=== PATIENT | female | born 1960 | race Caucasian/White ===

== ENCOUNTER → 2024-10-05 | Outpatient (REF) | payer OTHER ==
[2024-10-05 19:25] LABS: ALKALINE PHOSPHATASE 82 U/L (35-104); ALT/SGPT 14 U/L (7.0-40); AST/SGOT 11 U/L (<34); BILIRUBIN,TOTAL 0.6 MG/DL (0.3-1.2); BLOOD UREA NITROGEN 20 MG/DL (9-23); CALCIUM LEVEL 9.4 MG/DL (8.3-10.6); CARBON DIOXIDE LEVEL 28 MMOL/L (20-31); CHLORIDE LEVEL 107 MMOL/L (98-107); CHOLESTEROL LEVEL 279 MG/DL (<200); CHOLESTEROL RISK RATIO 3.98 (<5); CREATININE FOR GFR 0.72 MG/DL (0.55-1.30); GLOMERULAR FILTRATION RATE > 60.0 (>45); GLUCOSE, FASTING 84 MG/DL (74-106); LDL CHOLESTEROL 187.8 MG/DL (<100); POTASSIUM SERUM 4.6 MMOL/L (3.5-5.1); SODIUM LEVEL 142 MMOL/L (136-145); TOTAL PROTEIN 7.4 G/DL (5.7-8.2); TRIGLYCERIDES LEVEL 106 MG/DL (<150)
[2024-10-05 19:26] LABS: HEMATOCRIT 47.9 % (36.0-47.0); HEMOGLOBIN 15.3 g/dl (12.0-15.5); MEAN CORPUSCULAR HEMOGLOBIN 30.3 pg (27.0-33.0); MEAN CORPUSCULAR HGB CONC 31.9 g/dl (32.0-36.5); MEAN CORPUSCULAR VOLUME 94.9 fl (80.0-96.0); PLATELET COUNT, AUTOMATED 346 10^3/uL (150-450); RED BLOOD COUNT 5.05 10^6/uL (4.00-5.40); WHITE BLOOD COUNT 9.6 10^3/uL (4.0-10.0)
[2024-10-05 19:27] LABS: THYROID STIMULATING HORMONE 4.461 uIU/ML (0.55-4.78)
[2024-10-05 19:28] LABS: TOTAL 25(OH) VITAMIN D 15.2 NG/ML (20.0-100.0)
[2024-10-05 19:51] LABS: HEMOGLOBIN A1c 5.2 % (4.0-6.0)
== END ==
LOC: M LAB REF 16:27
PROVIDERS: ATTEND Student in an Organized Health Care Education/Training Program
DX: Z00.01 Encounter for general adult medical examination with abnormal findings (principal)

== ENCOUNTER → 2024-11-30 | Outpatient (CLI) | payer OTHER | LOC: M WHC 11:40 | PROVIDERS: ATTEND Student in an Organized Health Care Education/Training Program | DX: Z12.31 Encounter for screening mammogram for malignant neoplasm of breast (principal) ==

== ENCOUNTER → 2025-04-25 | Outpatient (REF) | payer OTHER ==
[2025-04-25 15:12] LABS: CHOLESTEROL LEVEL 222.0 MG/DL (<200); CHOLESTEROL RISK RATIO 2.82 (<5); LDL CHOLESTEROL 120.3 MG/DL (<100); NON-HDL-C 143.3 MG/DL; TRIGLYCERIDES LEVEL 115.0 MG/DL (<150)
== END ==
LOC: M LAB REF 14:50
PROVIDERS: ATTEND Student in an Organized Health Care Education/Training Program
DX: E78.5 Hyperlipidemia, unspecified (principal)

== ENCOUNTER → 2025-09-06 | Outpatient (REF) | payer OTHER ==
[2025-09-06 13:20] LABS: ALT/SGPT 22.0 U/L (7.0-40); AST/SGOT 17.0 U/L (<34); CALCIUM LEVEL 9.4 MG/DL (8.3-10.6); CARBON DIOXIDE LEVEL 28.0 MMOL/L (20-31); CHLORIDE LEVEL 103.0 MMOL/L (98-107); CHOLESTEROL LEVEL 208.0 MG/DL (<200); CHOLESTEROL RISK RATIO 2.76 (<5); CREATININE FOR GFR 1.0 MG/DL (0.55-1.30); GLOMERULAR FILTRATION RATE 63.3 (>45); LDL CHOLESTEROL 97.9 MG/DL (<100); NON-HDL-C 132.7 MG/DL; POTASSIUM SERUM 4.9 MMOL/L (3.5-5.1); SODIUM LEVEL 139.0 MMOL/L (136-145); TRIGLYCERIDES LEVEL 174.0 MG/DL (<150)
[2025-09-06 13:21] LABS: TOTAL 25(OH) VITAMIN D 40.3 NG/ML (20.0-100.0)
[2025-09-06 14:05] LABS: ESTIMATED AVERAGE GLUCOSE 100.0 MG/DL (60-110)
== END ==
LOC: M LAB REF 11:46
PROVIDERS: ATTEND Student in an Organized Health Care Education/Training Program
DX: E66.9 Obesity, unspecified (principal); E55.9 Vitamin D deficiency, unspecified